=== PATIENT | male | born 1965 | race Caucasian/White ===

== ENCOUNTER 2018-09-29 14:18 | Emergency (ER) | payer OTHER ==
[~2018-09-29] VITALS: Ht 167.6 cm; Wt 63.0 kg
== END 2018-09-29 15:49 | disposition home or self-care (01) ==
LOC: ER 14:18
DX: S20.212A Contusion of left front wall of thorax, initial encounter (principal); W18.39XA Other fall on same level, initial encounter; Y93.89 Activity, other specified; Y92.488 Other paved roadways as the place of occurrence of the external cause; Y99.8 Other external cause status

== ENCOUNTER 2019-04-11 14:41 | Emergency (ER) | payer OTHER ==
[~2019-04-11] VITALS: Ht 167.6 cm; Wt 61.2 kg
== END 2019-04-11 20:30 | disposition home or self-care (01) ==
LOC: ER 14:41
DX: K29.60 Other gastritis without bleeding (principal); R10.84 Generalized abdominal pain

== ENCOUNTER 2019-10-09 06:32 | Emergency (ER) | payer OTHER ==
[~2019-10-09] VITALS: Ht 167.6 cm; Wt 61.2 kg
== END 2019-10-09 10:19 | disposition home or self-care (01) ==
LOC: ER 06:32
DX: S20.211A Contusion of right front wall of thorax, initial encounter (principal); W18.09XA Striking against other object with subsequent fall, initial encounter; Y93.89 Activity, other specified; Y92.89 Other specified places as the place of occurrence of the external cause; Y99.8 Other external cause status

== ENCOUNTER 2021-04-01 08:00 | Outpatient (CLI) | payer OTHER | END 2021-04-01 08:30 | disposition home or self-care (01) | LOC: PPH VACUNA 08:00 | PROVIDERS: ATTEND Emergency Medicine Pediatric Emergency Medicine | DX: Z23 Encounter for immunization (principal) ==